=== PATIENT | female | born 1970 | race Caucasian/White ===

== ENCOUNTER 2021-08-04 12:39 | Emergency (ER) | payer OTHER ==
[~2021-08-04 12:39] MED LIST: ACETAMINOPHEN325 MG PO; CIPRO500 MG PO; LEVAQUIN500 MG PO; METRONIDAZOLE500 MG PO; NAPROXEN500 MG PO; PRILOSEC20 MG PO; WELLBUTRIN XL150 M1 PO; ZOFRAN4 MG PO
[2021-08-04 14:12] LABS: BILIRUBIN NEGATIVE (NEGATIVE); BLOOD NEGATIVE Ery/uL (NEGATIVE); CLARITY CLEAR (CLEAR); COLOR YELLOW (YELLOW); GLUCOSE (U) NORMAL (NORMAL); LEUKOCYTES NEGATIVE Leu/uL (NEGATIVE); NITRITE NEGATIVE (NEGATIVE); PROTEIN NEGATIVE (NEGATIVE); SPECIFIC GRAVITY <=1.005 (1.001-1.030); UROBILINOGEN 0.2 mg/dL (0.2-1.0)
[2021-08-04 14:12] LABS: BASOPHIL 0.5 % (0-2); EOSINOPHIL 1.3 % (0-5); HCT 39.4 % (37.0-47.0); HGB 12.8 g/dl (12.5-16.0); LYMPHOCYTE 22.5 % (15-48); MCH 28.8 pg (25.0-31.0); MCHC 32.5 g/dL (32.0-36.0); MCV 88.5 fL (78.0-100.0); MONOCYTE 9.2 % (0-12); MPV 9.3 fL (6.0-9.5); NEUTROPHIL 66.4 % (41-80); NRBC 0; PLT 384 K/uL (150-400); RBC 4.45 M/uL (4.20-5.40); WBC 7.8 K/uL (4.0-10.5)
[2021-08-04 14:31] LABS: ALBUMIN 3.8 g/dL (3.4-5.0); BILIRUBIN - TOTAL 0.3 mg/dL (0.2-1.0); BUN/CREAT RATIO (CALC) 18.4 RATIO; CREATININE 0.76 mg/dL (0.51-0.95); POTASSIUM 3.7 mmol/L (3.5-5.1); TOTAL PROTEIN 8.8 g/dL (6.4-8.2)
[2021-08-04] MEDS ORDERED: METRONIDAZOLE500 MG PO (16:26)
[2021-08-04] MEDS ORDERED: CIPRO500 MG PO (16:26)
== END 2021-08-04 16:50 | disposition home or self-care (01) ==
LOC: FER 12:39
PROVIDERS: Physician Assistant
DX: K57.32 Diverticulitis of large intestine without perforation or abscess without bleeding (principal); Z28.311 Partially vaccinated for COVID-19; Z88.0 Allergy status to penicillin; Z91.09 Other allergy status, other than to drugs and biological substances
CPT/HCPCS: 36415; 80053; 81003; 83690; 85025; J2405; J7030; Q9967